=== PATIENT | female | born 1940 | race Caucasian/White ===

== ENCOUNTER 2023-03-12 14:05 | Emergency (ER) | payer OTHER ==
[2023-03-12 14:22] VITALS: BP 145/46; PULSE 63; RESP 20; TEMP 98.2; BMI 27.9
== END 2023-03-12 16:24 | disposition home or self-care (01) ==
LOC: FER 14:05
DX: S86.912A Strain of unspecified muscle(s) and tendon(s) at lower leg level, left leg, initial encounter (principal); M79.662 Pain in left lower leg; X58.XXXA Exposure to other specified factors, initial encounter; Y93.73 Activity, racquet and hand sports
CPT/HCPCS: 93971-TC; 99284-25